=== PATIENT | female | born 1975 | race Caucasian/White ===

== ENCOUNTER 2018-05-11 18:19 | Emergency (ER) | payer OTHER, MEDICAID, SELFPAY ==
[2018-05-11 18:44] VITALS: BP 140/95; PULSE 84; RESP 18; TEMP 36.8; O2SAT 96
[2018-05-11 18:57] VITALS: BP 151/100; PULSE 72; RESP 17; O2SAT 100
--- NOTE | 2018-05-11 18:59 | ED.EYEPROB ---
HPI - Eye Problem <MEETA Kwon - Last Filed: 05/11/18 22:22> General Chief complaint: Eye Problems Stated complaint: SOMETHING IN RT EYE Time Seen by Provider: 05/11/18 18:53 Source: patient Mode of arrival: ambulatory Limitations: no limitations History of Present Illness HPI Narrative: 43-year-old female that is a nonsmoker here for complaint of pain and discomfort to her right eye since earlier this afternoon. She states that she was drilling a hole and the ceiling above per when a particle fell into her right eye. She states she tried to rub it out and washed for she feels that there is still been in her eye. She denies any vision changes. She does not know her last tetanus. Related Data Previous Rx's Medication Instructions Recorded oseltamivir [Tamiflu] 75 mg PO QDAY #10 cap 08/01/16 diazepam [Valium] 5 mg PO Q12HP PRN #10 tab 07/02/17 meloxicam [Mobic] 7.5 mg PO BIDCC PRN #20 tab 07/02/17 prednisone 40 mg PO Q DAY 5 Days #0 tab 07/02/17 Allergies Allergy/AdvReac Type Severity Reaction Status Date / Time Erythromycin Allergy Unknown Uncoded 11/28/17 12:58 IBUPROFEN Allergy Unknown HIVES Uncoded 11/28/17 12:58 Review of Systems <MEETA Kwon - Last Filed: 05/11/18 22:22> Constitutional Denies chills, Denies fever(s), Denies lethargy and Denies weakness Eyes Denies change in vision, Denies eye discharge, Denies irritation, Denies loss of vision and Reports eye pain ENT Ears, Nose, Mouth, and Throat: Denies change in voice, Denies neck pain and Denies sore throat Cardiovascular Denies chest pain, Denies irregular heart rhythm, Denies lightheadedness, Denies palpitations, Denies dyspnea, Denies dyspnea on exertion and Denies orthopnea Respiratory Denies cough, Denies dyspnea, Denies dyspnea on exertion and Denies wheezing Gastrointestinal Gastrointestinal: Denies abdominal pain, Denies change in bowel habits, Denies diarrhea, Denies nausea and Denies vomiting Genitourinary Denies hematuria, Denies flank pain, Denies urinary incontinence and Denies urinary urgency Musculoskeletal Denies neck pain Integumentary/Breasts Denies pruritus, Denies erythema, Denies rash and Denies wounds Neurologic Denies confusion, Denies loss of vision and Denies weakness Psychiatric Denies anxiety, Denies confusion, Denies depression, Denies homicidal ideation and Denies suicidal ideation Endocrine Denies palpitations Hematologic/Lymphatic Denies easy bruising Allergic/Immunologic Denies wheezing Exam <MEETA Kwon - Last Filed: 05/11/18 22:22> Initial Vital Signs Initial Vital Signs: Vital Signs Temperature 98.2 F 05/11/18 18:44 Pulse Rate 84 05/11/18 18:44 Respiratory Rate 18 05/11/18 18:44 Blood Pressure 140/95 H 05/11/18 18:44 Pulse Oximetry 96 05/11/18 18:44 Const General: cooperative and well developed Nutritional Appearance: well nourished Orientation: alert, awake, oriented x3 and not confused HENMT Nose: external nose normal and septum normal Eyes Conjunctivae: conjunctivae normal Pupils: PERRL EOM: EOM intact bilaterally Other: no foreign body identified into the right eye. On fluorescein exam corneal abrasion is seen into the 2 and 3:00 position of the right cornea. Resp Effort & Inspection: normal respiratory effort, able to speak in complete sentences, no respiratory distress and no use of accessory muscles Auscultation: clear to auscultation bilaterally, no rales, no rhonchi and no wheezes Cardio Rate: regular rate Rhythm: regular rhythm Heart Sounds: no click, no gallops, no murmurs and no rubs Pulses: normal peripheral pulses Back/Spine/Pelvis Back: No CVA tenderness Cervical Spine: cervical ROM normal and No pain with cervical ROM Thoracic/Lumbar Spine: thoracic and lumbar spine normal to inspection Skin General: no rashes or lesions noted, No jaundice and No petechiae Neuro General: alert, oriented x3, gait normal and no focal motor deficits Speech: speech normal <Kellie Morin DO - Last Filed: 05/12/18 01:42> Initial Vital Signs Initial Vital Signs: Vital Signs Temperature 98.2 F 05/11/18 18:44 Pulse Rate 84 05/11/18 18:44 Respiratory Rate 18 05/11/18 18:44 Blood Pressure 140/95 H 05/11/18 18:44 Pulse Oximetry 96 05/11/18 18:44 Course <MEETA Kwon - Last Filed: 05/11/18 22:22> Orders Ordered: Discontinued Medications Diphtheria/Tetanus/Acell Pertussis (Adacel) 0.5 ml IM .ONCE ONE Stop: 05/11/18 19:42 Last Admin: 05/11/18 19:54 Dose: 0.5 ml Erythromycin (Erythromycin Ophth Oint) 1 applic EYE-RIGHT NOW ONE Stop: 05/11/18 19:42 Last Admin: 05/11/18 19:48 Dose: Not Given Polymyxin/Trimethoprim Sulfate (Polytrim Prepack) 1 bottle MISC SEEINSTR ONE Stop: 05/11/18 19:48 Last Admin: 05/11/18 19:53 Dose: 1 drop Vital Signs - 8 hr 05/11/18 18:44 05/11/18 18:57 05/11/18 20:06 Temperature 98.2 F 98.7 F Pulse Rate 84 72 73 Respiratory Rate 18 17 18 Blood Pressure 140/95 H 150/70 H Blood Pressure [Left Arm] 151/100 H Pulse Oximetry 96 100 99 <Kellie Morin DO - Last Filed: 05/12/18 01:42> Orders Ordered: Discontinued Medications Diphtheria/Tetanus/Acell Pertussis (Adacel) 0.5 ml IM .ONCE ONE Stop: 05/11/18 19:42 Last Admin: 05/11/18 19:54 Dose: 0.5 ml Erythromycin (Erythromycin Ophth Oint) 1 applic EYE-RIGHT NOW ONE Stop: 05/11/18 19:42 Last Admin: 05/11/18 19:48 Dose: Not Given Polymyxin/Trimethoprim Sulfate (Polytrim Prepack) 1 bottle MISC SEEINSTR ONE Stop: 05/11/18 19:48 Last Admin: 05/11/18 19:53 Dose: 1 drop Vital Signs - 8 hr 05/11/18 18:44 05/11/18 18:57 05/11/18 20:06 Temperature 98.2 F 98.7 F Pulse Rate 84 72 73 Respiratory Rate 18 17 18 Blood Pressure 140/95 H 150/70 H Blood Pressure [Left Arm] 151/100 H Pulse Oximetry 96 100 99 MDM - Eye Problem <MEETA Kwon - Last Filed: 05/11/18 22:22> MDM Narrative Medical decision making narrative: Signs symptoms presents as corneal abrasion to the right eye. She is covered with Polytrim due to erythromycin allergy.. [id number] Tylenol or Motrin as needed for any discomfort. Visual acuity was unremarkable. Tetanus was updated in the emergency room today. Follow up with primary care provider next few days for re-evaluation. For any worsening symptoms return to the emergency room. Discharge Plan Departure Patient Disposition: Home Clinical Impression: Abrasion of cornea, right Discharge Date/Time: 05/11/18 20:07 Interventions: ED Discharge Assessment Last Done: 05/11/18 20:06 Instructions: DI for Corneal Abrasion Activity Restrictions/Additional Instructions: signs and symptoms presents as a corneal abrasion to the right eye. You have been placed on antibiotic drops use as directed. Use [id number] Tylenol or Motrin as needed for any discomfort. Follow up with primary care provider next week for re-evaluation. Tetanus was updated the emergency room today. For any worsening symptoms return to the emergency room. Prescriptions: No Action oseltamivir [Tamiflu] 75 MG capsule 75 mg PO QDAY Qty: 10 RF: 0 prednisone 20 MG tablet 40 mg PO Q DAY 5 Days Qty: 0 RF: 0 diazepam [Valium] 5 MG tablet 5 mg PO Q12HP PRNQty: 10 RF: 0 meloxicam [Mobic] 7.5 MG tablet 7.5 mg PO BIDCC PRNQty: 20 RF: 0 Referrals: Renée Stark PA-C [Primary Care Provider] - <Kellie Morin DO - Last Filed: 05/12/18 01:42> Cosign ED Attending Thea Attestation: I was immediately available in the department for consultation. Documentation has been reviewed. I agree with assessment and plan.
[2018-05-11] MEDS: POLYMY B/TRIMETH OPHTH PREPACK 1 BOTTLE MISC (19:53)
[2018-05-11] MEDS: TET,DIPH,PERTUSS(ACELL),VAC/PF 0.5 ML SYRINGE IM (19:54)
[2018-05-11 20:06] VITALS: BP 150/70; PULSE 73; RESP 18; TEMP 37.1; O2SAT 99
== END 2018-05-11 20:07 | disposition home or self-care (01) ==
PROVIDERS: Emergency Provider Nurse Practitioner Family; PCP Physician Assistant
DX: S05.01XA Injury of conjunctiva and corneal abrasion without foreign body, right eye, initial encounter (principal)
CPT/HCPCS: 90471; 99283; 90715

== ENCOUNTER → 2018-09-19 11:00 | Outpatient (CLI) | payer OTHER, MEDICAID, SELFPAY ==
--- NOTE | 2018-09-19 | DI.RAD.S_ITS ---
PROCEDURE: XR SHOULDER RT MIN 2V INDICATIONS: RIGHT SHOULDER PAIN TECHNIQUE: 3 views of the shoulder were acquired. COMPARISON: None. FINDINGS: Bones: No fractures or dislocations. No suspicious bony lesions. There is moderate cromioclavicular and mild glenohumeral joint degeneration with a twin space narrowing and osteophyte formation. Visualized ribs appear intact. Soft tissues: No suspicious soft tissue calcifications. IMPRESSION: No fracture or dislocation. [id number] degenerative joint disease. If clinical symptoms persist or clinical suspicion for internal derangement is high, MRI is suggested for further evaluation. Dictated by: Pankaj Haas M.D. on 09/19/2018 at 17:21 Approved by: Pankaj Haas M.D. on 09/19/2018 at 17:22
== END ==
PROVIDERS: PCP Physician Assistant; Visit Provider Internal Medicine
DX: M25.511 Pain in right shoulder (principal); M19.011 Primary osteoarthritis, right shoulder
CPT/HCPCS: 73030

== ENCOUNTER → 2019-10-13 19:33 | Outpatient (ROUT) | payer OTHER, MEDICAID, SELFPAY ==
[2019-10-13 19:49] LABS: Add Manual Diff / Slide Review NO; Basophils Absolute Auto 100 /uL (0-100); Basophils Percent Auto 0.6 % (0-2); Eosinophils Absolute Auto 100 /uL (0-450); Eosinophils Percent Auto 1.2 % (2-4); Hemoglobin 13.5 g/dL (12.0-16.0); Lymphocytes Absolute Auto 2300 /uL (1100-4500); Lymphocytes Percent Auto 25.4 % (25-40); Mean Corpuscular HGB Conc 33.6 % (30-36); Mean Corpuscular Hemoglobin 31.3 PG (26-34); Monocytes Absolute Auto 600 /uL (0-900); Monocytes Percent Auto 6.7 % (3-14); Neutrophils Absolute Auto 5900 /uL (1500-7000); Neutrophils Percent Auto 66.1 % (50-75); Platelet Count 267 X10^3/uL (150-400); Red Cell Distribution Width 13.4 % (11.6-14.8); White Blood Cell Count 8.9 X10^3/uL (4.5-11.0)
[2019-10-13 19:56] LABS: Alanine Aminotransferase 21 IU/L (<35); Albumin 4.2 g/dL (3.5-5.0); Albumin Globulin Ratio 1.4 (1.0-2.8); Alkaline Phosphatase 74 U/L (38-126); Aspartate Aminotransferase 24 IU/L (14-36); Bilirubin Total 0.5 mg/dL (0.2-1.3); Blood Urea Nitrogen 14 mg/dL (7-17); Calcium 9.7 mg/dL (8.4-10.2); Carbon Dioxide 27 mmol/L (22-32); Chloride 103 mmol/L (98-107); Cholesterol 183 mg/dL (140-199); Estimated Glomerular Filt Rate > 60.0 mL/min (>60); Globulin 2.9 g/dL (1.7-4.1); Glucose 88 mg/dL (70-100); HDL Cholesterol 46 mg/dL (40-60); HEMOLYSIS < 15 (0-50); LDL Cholesterol Calculated 105 mg/dL (<100); Potassium 3.8 mmol/L (3.4-5.1); Sodium 141 mmol/L (137-145); Total Protein 7.1 g/dL (6.3-8.2); Triglycerides 162 mg/dL (35-150)
[2019-10-13 20:05] LABS: Hemoglobin A1C% w Est Avg Glu 5.6 % (4.0-6.0)
[2019-10-13 20:13] LABS: Vitamin D 25 Hydroxy (D3) 33.5 ng/mL (30.0-100.0)
[2019-10-13 20:26] LABS: TSH w/ Reflex to FT4 2.84 uIU/mL (0.47-4.68)
== END ==
PROVIDERS: PCP Physician Assistant; Visit Provider Physician Assistant
DX: Z13.1 Encounter for screening for diabetes mellitus (principal); Z13.29 Encounter for screening for other suspected endocrine disorder; R63.5 Abnormal weight gain; G47.00 Insomnia, unspecified; E55.9 Vitamin D deficiency, unspecified
CPT/HCPCS: 80053; 80061; 82306; 83036; 84443; 85025

== ENCOUNTER 2022-05-09 11:37 | Emergency (ER) | payer OTHER, MEDICAID, SELFPAY ==
[2022-05-09 11:46] VITALS: BP 142/86; PULSE 77; RESP 15; TEMP 36.4; O2SAT 100; BMI 32.4
--- NOTE | 2022-05-09 11:51 | DI.RAD.S_ITS ---
PROCEDURE: XR KNEE LT 3V INDICATIONS: knee pain TECHNIQUE: 3 views of the knee were acquired. COMPARISON: [facility], , KNEE 3V RIGHT, 03/24/2013, 9:30. FINDINGS: Bones: No fractures or dislocations. No suspicious bony lesions. There is mild medial femorotibial joint space narrowing seen, with associated remodeling changes including subchondral sclerosis and osteophyte formation along the jointline. On the sunrise view, there is mild lateral patellofemoral joint space narrowing seen. Osteophyte formation can be seen along the margins of the patella. Soft tissues: There is a moderate left knee joint effusion. No suspicious soft tissue calcifications. IMPRESSION: Moderate left knee joint effusion. No acute bony abnormality is seen. Osteoarthritic degenerative changes are seen, which are most prominent involving the medial femorotibial compartment of the knee. If it would be helpful for clinical management decision making, please consider a dedicated, scheduled knee MRI for further evaluation (assuming that there is no contraindication). Dictated by: Dani Lorenzo M.D. on 05/09/2022 at 11:05 Approved by: Dani Lorenzo M.D. on 05/09/2022 at 11:06
[2022-05-09] MEDS: KETOROLAC 10 MG TABLET PO (14:23)
--- NOTE | 2022-05-09 14:58 | ED.LOWEXIN ---
HPI - Extremity Injury (Lower) <MEETA Martínez - Last Filed: 05/09/22 17:02> General Chief Complaint: Extremity Injury, Lower Stated Complaint: lt. knee pain Time Seen by Provider: 05/09/22 13:37 Source: patient Mode of arrival: Ambulatory History of Present Illness HPI Narrative: This is a 47-year-old female who presents to the emergency department complaining of left knee pain which has been worsening over the last 2 weeks. She states she went to the walk-in clinic and came here for referral to Orthopedics. She states that she does not have a primary care provider and she went to the walk-in clinic for a referral to physical therapy but the referral location did not take her insurance. Patient states that she has a history of meniscal injury but does not remember which knee. She states that her left knee has been hurting for about 2 weeks, it feels swollen and she states it feels unstable Related Data Previous Rx's Medication Instructions Recorded oseltamivir 75 mg capsule (Tamiflu) 75 mg PO QDAY #10 caps 08/01/16 diazepam 5 mg tablet (Valium) 5 mg PO Q12HP PRN #10 tabs 07/02/17 meloxicam 7.5 mg tablet (Mobic) 7.5 mg PO BIDCC PRN #20 tabs 07/02/17 prednisone 20 mg tablet 40 mg PO Q DAY 5 days #0 tabs 07/02/17 Allergies Allergy/AdvReac Type Severity Reaction Status Date / Time erythromycin base Allergy Unknown Verified 05/09/22 14:02 ibuprofen Allergy Unknown Hives Verified 05/09/22 14:02 Review of Systems <MEETA Martínez - Last Filed: 05/09/22 17:02> Review of Systems Narrative: Review of systems is negative for acute abnormalities unless otherwise noted in HPI Patient History <MEETA Martínez - Last Filed: 05/09/22 17:02> Social History Smoking Status: Never smoker Smoking Status: Never smoker alcohol intake frequency: a few times a week Substance Use Type: marijuana Exam <MEETA Martínez - Last Filed: 05/09/22 17:02> Narrative Exam Narrative: Reviewed vitals signs and nursing notes. General: cooperative, comfortable, in no acute distress, well groomed HEENT: symmetrical facial expressions, moist mucous membranes Cardiovascular: regular rate and rhythm, no peripheral edema, warm extremities Respiratory: normal effort, able to speak in complete sentences, without wheezing, stridor, or abnormal breath sounds. No retractions or tachypnea. GI: abdomen soft, nontender to palpation, nondistended, without masses, rebound tenderness or exquisite tenderness with exam. MSK: moves all extremities, neurovascularly intact, no weakness, normal tone, left knee with tenderness over patellar tendon but it feels intact, no significant tenderness over MCL or LCL, Jacqueline's is negative, no laxity with varus and valgus testing although patient did complain of pain on the medial aspect of her knee with this testing, palpable patellar effusion Skin: brisk capillary refill, without pallor or erythema Neuro: normal speech and cognition, A&O x3, ambulatory, clear speech Psych: mental status is grossly normal, congruent mood, normal affect, pleasant and cooperative Initial Vital Signs Initial Vital Signs: Vital Signs Temperature 97.5 F L 05/09/22 11:46 Pulse Rate 77 05/09/22 11:46 Respiratory Rate 15 05/09/22 11:46 Blood Pressure 142/86 H 05/09/22 11:46 Pulse Oximetry 100 05/09/22 11:46 Oxygen Delivery Method 05/09/22 11:46 <Kellie Morin DO - Last Filed: 05/10/22 20:39> Initial Vital Signs Initial Vital Signs: Vital Signs Temperature 97.5 F L 05/09/22 11:46 Pulse Rate 77 05/09/22 11:46 Respiratory Rate 15 05/09/22 11:46 Blood Pressure 142/86 H 05/09/22 11:46 Pulse Oximetry 100 05/09/22 11:46 Oxygen Delivery Method 05/09/22 11:46 Procedures <MEETA Martínez - Last Filed: 05/09/22 17:02> Orthopedic Splinting/Casting Injury #1: Side: left Lower Extremity Injury Location: knee Lower Extremity Immobilizer: knee immobilizer Post splinting neuro exam: intact Post splinting vascular exam: intact Course <MEETA Martínez Last Filed: 05/09/22 17:02> Orders Ordered: Discontinued Medications Ketorolac Tromethamine (Ketorolac 10 Mg Tablet) 10 mg PO NOW ONE Stop: 05/09/22 14:02 Last Admin: 05/09/22 14:23 Dose: 10 mg Documented By: CARLOTTA Vital Signs Vital signs: Vital Signs - 8 hr 05/09/22 11:46 Temperature 97.5 F L Pulse Rate 77 Respiratory Rate 15 Blood Pressure 142/86 H Pulse Oximetry 100 Oxygen Delivery Method Room Air <Kellie Morin DO - Last Filed: 05/10/22 20:39> Orders Ordered: Discontinued Medications Ketorolac Tromethamine (Ketorolac 10 Mg Tablet) 10 mg PO NOW ONE Stop: 05/09/22 14:02 Last Admin: 05/09/22 14:23 Dose: 10 mg Documented By: CARLOTTA Vital Signs Vital signs: Vital Signs - 8 hr 05/09/22 11:46 Temperature 97.5 F L Pulse Rate 77 Respiratory Rate 15 Blood Pressure 142/86 H Pulse Oximetry 100 Oxygen Delivery Method Room Air MDM - Extremity Injury (Lower) <MEETA Martínez - Last Filed: 05/09/22 17:02> Imaging Data Extremity x-ray #1: Radiologist's Impression: PROCEDURE:? XR KNEE LT 3V ? INDICATIONS:? knee pain ? TECHNIQUE:? 3 views of the knee were acquired.? ? COMPARISON:? [facility], , KNEE 3V RIGHT, 03/24/2013, 9:30. ? FINDINGS:? ? Bones:? No fractures or dislocations.? No suspicious bony lesions.? There is mild medial femorotibial joint space narrowing seen, with associated remodeling changes including subchondral sclerosis and osteophyte formation along the jointline.? ? On the sunrise view, there is mild lateral patellofemoral joint space narrowing seen. Osteophyte formation can be seen along the margins of the patella. ? Soft tissues:? There is a moderate left knee joint effusion.? No suspicious soft tissue calcifications.? ? ? IMPRESSION:? Moderate left knee joint effusion. ? No acute bony abnormality is seen. ? Osteoarthritic degenerative changes are seen, which are most prominent involving the medial femorotibial compartment of the knee.? ? ? If it would be helpful for clinical management decision making, please consider a dedicated, scheduled knee MRI for further evaluation (assuming that there is no contraindication).? ? Dictated by: Dani Lorenzo M.D. on 05/09/2022 at 11:05 ? ? Approved by: Dani Lorenzo M.D. on 05/09/2022 at 11:06 ? [facility] Narrative Medical decision making narrative: This is a 47-year-old female presents to the emergency department with 2 weeks of left knee pain with prior history of torn meniscus. She does not have any particular injury which this pain came from, it has been getting more sore over the last 2 weeks. She has a palpable supra patellar effusion. X-rays negative for acute osseous abnormality. Jacqueline's test was negative, no increased laxity with varus and valgus testing, she had tenderness over patellar tendon but no tenderness over her MCL or LCL. She was fitted in a knee immobilizer and encouraged to follow-up with [facility]. She is not having any muscle spasms, this does not sound like referred pain from her lower back. X-ray shows [id number] left knee effusion. Encourage patient to follow-up with orthopedics and wear the knee immobilizer while she is ambulatory until then. Encouraged anti-inflammatories and Tylenol as needed for pain, patient states that she is taking Tylenol and naproxen at this time. Patient is appropriate and amenable to discharge home. Vital signs are stable on repeat examination is unremarkable. Patient has been informed of results. Patient has been given strict return to ER precautions for any new or worsening symptoms. Patient understands to follow up closely with outpatient providers as instructed. Patient understands plan and agrees to discharge home. All questions and concerns answered at this time. Discharge Plan Departure Patient Disposition: Home Clinical Impression: Effusion of knee joint, left Instructions: DI for Meniscal Tear, DI for Knee Pain Activity Restrictions/Additional Instructions: *You have been diagnosed with a knee effusion. Please follow-up with [facility], placed consultation. Continued ice, wear the knee immobilizer while you are doing work or wrap her knee with an Dusty bandage to provide a little additional support and prevent re-injuring it. Take your anti-inflammatories and Tylenol for pain, ice it frequently for 20 minutes at a time. Try to avoid overuse, follow-up at [facility]. You can call the number below to establish care with one of the primary care providers. *What to do: *Please continue to take your regular medications as directed. [ ] New medication prescriptions sent to your pharmacy: [ ] [ ] New medication written as a paper prescription [x ] No new medications given *Please follow up with your primary care provider in 2-3 days, call for an appointment. Let them know you were seen in the Emergency Department and that we asked that you be seen for follow-up. We will electronically transmit a record of today's note if your PCP is in our system *If you do not have a primary care provider please contact [phone] to establish care with one of the [facility] primary care providers. *Return to Emergency Department if you should have any new, worsening, or concerning symptoms, such as [fever greater than 101F, chills, worsening pain, persistent vomiting or other bothersome symptoms]. Prescriptions: No Action oseltamivir [Tamiflu] 75 MG capsule 75 mg PO QDAY Qty: 10 0RF prednisone 20 MG tablet 40 mg PO Q DAY 5 Days Qty: 0 0RF diazepam [Valium] 5 MG tablet 5 mg PO Q12HP PRNQty: 10 0RF meloxicam [Mobic] 7.5 MG tablet 7.5 mg PO BIDCC PRNQty: 20 0RF Referrals: [facility] [Provider Group] Renée Stark PA-C [Primary Care Provider] - Visit Report Forms: Patient Portal/API <Kellie Morin DO - Last Filed: 05/10/22 20:39> Cosign ED Attending Thea Attestation: I was immediately available in the department for consultation. Documentation has been reviewed. I agree with assessment and plan.
== END 2022-05-09 15:03 | disposition home or self-care (01) ==
PROVIDERS: Emergency Provider Nurse Practitioner Critical Care Medicine; PCP Physician Assistant
DX: M25.462 Effusion, left knee (principal)
CPT/HCPCS: 73562; 99283

== ENCOUNTER → 2022-05-18 18:40 | Outpatient (CLI) | payer OTHER, MEDICAID, SELFPAY ==
--- NOTE | 2022-05-18 18:42 | DI.MRI.S_ITS ---
PROCEDURE: MR KNEE LT WO CON INDICATIONS: Unspecified internal derangement of left knee TECHNIQUE: Noncontrast sagittal PD fast spin echo and T2 fast spin echo with fat saturation, sagittal 3-D FLASH with fat saturation; coronal T1 spin echo and PD fast spin echo with fat saturation, and axial PD fast spin echo with fat saturation through the knee. COMPARISON: [facility], CR, XR KNEE LT 3V, 05/09/2022, 11:52. [facility], MR, KNEE WITHOUT CONTRAST, 04/02/2013, 9:32. FINDINGS: Image quality: Excellent. Menisci: Peripheral displacement of medial meniscus bowing medial collateral ligament is seen. Signal abnormality involving posterior horn of medial meniscus with subtle extension to inferior articulating surface concerning for subtle oblique tear best seen on series 8, image 11. Lateral meniscus is normal in size and signal. Moderate to high-grade partial-thickness tear involving medial meniscal root ligament is noted. Lateral meniscal root ligament is intact. Cruciate ligaments: Suggestion of degenerative changes versus low-grade partial-thickness tear involving proximal ACL near its femoral insertion. No ACL rupture. PCL is intact. Medial structures: Low-grade MCL sprain/partial-thickness tear is seen. The posterior oblique ligament, semimembranosus tendon insertions, oblique popliteal ligament, and meniscocapsular junction appear intact. Visualized portions of the pes anserinus tendons appear normal. No abnormal bursal fluid. Lateral structures: The lateral collateral ligament, long and short heads of the biceps femoris tendon appear intact. The popliteus tendon appears normal; the popliteofibular ligament appears intact. Iliotibial band appears normal. Anterior structures: The quadriceps and patellar tendons appear intact. Patellar alignment is normal. No femoral trochlear dysplasia or ventral trochlear prominence. No edema in the infrapatellar fat pad. Bones and cartilage: Mild tricompartmental osteoarthritis and low-grade chondromalacia is seen more prominent in medial femoral tibial compartment. No fracture or dislocation. Nonspecific intraosseous cystic area involving posterior medial medullary space of proximal tibia near PCL insertion and may represent intraosseous cyst. Joint space: There is moderate amount of joint fluid, no gross loose bodies. No Teran's cyst. Normal appearing synovial plicae are incidentally noted. IMPRESSION: 1. Suggestion of very subtle oblique tear involving posterior horn of medial meniscus extending to inferior articulating surface. Suggestion of moderate to high-grade partial-thickness tear involving medial meniscal root ligament. Lateral meniscus is intact. 2. Degenerative changes versus low-grade partial-thickness tear involving proximal ACL. No full-thickness ACL rupture. PCL is intact. 3. Low-grade MCL sprain/partial-thickness tear. 4. Mild tricompartmental osteoarthritis and low-grade chondromalacia more prominent in medial femoral tibial compartment. Nonspecific intraosseous cyst formation in proximal tibial intramedullary space near PCL insertion. No fracture or dislocation. 5. Moderate joint effusion, no gross loose bodies. No bakers cyst. Dictated by: Anthony Eaton M.D. on 05/19/2022 at 9:28 Approved by: Anthony Eaton M.D. on 05/19/2022 at 9:33
== END ==
PROVIDERS: PCP Physician Assistant; Referring Provider Physician Assistant Medical; Visit Provider Physician Assistant Medical
DX: S83.412A Sprain of medial collateral ligament of left knee, initial encounter (principal); M23.92 Unspecified internal derangement of left knee; M17.12 Unilateral primary osteoarthritis, left knee; M94.262 Chondromalacia, left knee; M25.462 Effusion, left knee
CPT/HCPCS: 73721

== ENCOUNTER → 2022-06-29 06:59 | Outpatient (CLI) | payer OTHER, MEDICAID, SELFPAY ==
--- NOTE | 2022-06-29 | DI.MG.S_ITS ---
BILATERAL DIGITAL SCREENING MAMMOGRAM 3D/2D WITH CAD: 06/29/2022 CLINICAL: Routine screening. Baseline exam. No prior exams were available for comparison. Both breasts are heterogeneously dense, which may obscure small masses (category c / 51-75% glandular tissue). Current study was also evaluated with a Computer Aided Detection (CAD) system. No significant masses, calcifications, or other findings are seen in either breast. IMPRESSION: NEGATIVE There is no mammographic evidence of malignancy. A 1 year screening mammogram is recommended. Based on the Tyrer Cuzick model (a risk assessment model) the patient's lifetime risk is 14.7% and her 10 year risk is 3.2%. According to the ACR, ACS, and NCCN guidelines, an annual breast MRI exam along with mammogram is recommended if the patient's lifetime risk is 20% or greater. This exam was interpreted at Station ID: [id number]. NOTE: For mammograms, a report in lay terms will be sent to the patient. Approximately 15% of breast malignancies will not be visualized mammographically. In the management of a palpable breast mass, a negative mammogram must not discourage biopsy of a clinically suspicious lesion. Electronically Signed By: Yandy johnson/talat:06/29/2022 13:20:24 letter sent: Normal Exam ACR BI-RADS Category 1: Negative [id number]
[2022-06-29 09:17] LABS: Add Manual Diff / Slide Review NO; Basophils Absolute Auto 0 /uL (0-100); Basophils Percent Auto 0.5 % (0-2); Eosinophils Absolute Auto 100 /uL (0-450); Eosinophils Percent Auto 1.6 % (2-4); Hematocrit 36.9 % (36-46); Hemoglobin 12.6 g/dL (12.0-16.0); Lymphocytes Absolute Auto 1400 /uL (1100-4500); Lymphocytes Percent Auto 20.9 % (25-40); Mean Corpuscular HGB Conc 34.1 % (30-36); Mean Corpuscular Hemoglobin 32.1 PG (26-34); Mean Corpuscular Volume 94.3 fL (80-100); Monocytes Absolute Auto 400 /uL (0-900); Monocytes Percent Auto 5.9 % (3-14); Neutrophils Absolute Auto 4800 /uL (1500-7000); Neutrophils Percent Auto 71.1 % (50-75); Platelet Count 236 X10^3/uL (150-400); Red Blood Cell Count 3.91 X10^6/uL (4.0-5.2); Red Cell Distribution Width 13.9 % (11.6-14.8); White Blood Cell Count 6.8 X10^3/uL (4.5-11.0)
[2022-06-29 11:19] LABS: Vitamin D 25 Hydroxy (D3) 46.2 ng/mL (30.0-100.0)
[2022-06-29 11:27] LABS: TSH w/ Reflex to FT4 2.07 uIU/mL (0.47-4.68)
[2022-06-29 15:24] LABS: Alanine Aminotransferase 22 IU/L (<35); Albumin 3.8 g/dL (3.5-5.0); Albumin Globulin Ratio 1.4 (1.0-2.8); Alkaline Phosphatase 73 U/L (38-126); Aspartate Aminotransferase 18 IU/L (14-36); BUN Creatinine Ratio 20.5 (6-22); Bilirubin Total 0.3 mg/dL (0.2-1.3); Blood Urea Nitrogen 15 mg/dL (7-17); Carbon Dioxide 26 mmol/L (22-32); Chloride 104 mmol/L (98-107); Cholesterol 177 mg/dL (140-199); Estimated Glomerular Filt Rate > 60 mL/min (>60); Globulin 2.7 g/dL (1.7-4.1); Glucose 104 mg/dL (70-100); HDL Cholesterol 61 mg/dL (40-60); HEMOLYSIS < 15 (0-50); LDL Cholesterol Calculated 94 mg/dL (<100); Potassium 4.4 mmol/L (3.4-5.1); Sodium 138 mmol/L (137-145); Total Protein 6.5 g/dL (6.3-8.2); Triglycerides 108 mg/dL (35-150)
[2022-06-29 16:30] LABS: Vitamin B12 438 pg/mL (239-931)
== END ==
PROVIDERS: Family Provider Family Medicine; PCP Family Medicine; Referring Provider Family Medicine; Visit Provider Family Medicine
DX: Z12.31 Encounter for screening mammogram for malignant neoplasm of breast (principal); Z13.29 Encounter for screening for other suspected endocrine disorder; E56.9 Vitamin deficiency, unspecified; K21.9 Gastro-esophageal reflux disease without esophagitis; N92.6 Irregular menstruation, unspecified; Z13.0 Encounter for screening for diseases of the blood and blood-forming organs and certain disorders involving the immune mechanism; Z13.220 Encounter for screening for lipoid disorders; Z82.49 Family history of ischemic heart disease and other diseases of the circulatory system
CPT/HCPCS: 36415; 77063; 77067; 80053; 80061; 82306; 82607; 82746; 84443; 85025

== ENCOUNTER → 2022-08-04 09:10 | Outpatient (CLI) | payer OTHER, MEDICAID, SELFPAY ==
[2022-08-04 10:33] LABS: COVID19 -Nasal RAPID Negative (Negative)
== END ==
PROVIDERS: Family Provider Family Medicine; PCP Family Medicine; Visit Provider Surgery
DX: Z20.822 Contact with and (suspected) exposure to COVID-19 (principal); Z01.812 Encounter for preprocedural laboratory examination
CPT/HCPCS: 87635; C9803

== ENCOUNTER 2022-08-07 09:38 | Day surgery (SDC) | payer OTHER, MEDICAID, SELFPAY ==
--- NOTE | 2022-08-07 09:50 | PM.HP.1 ---
History of Present Illness History of Present Illness Date Patient Seen: 08/07/22 Time Patient Seen: 10:03 Chief complaint: Colonoscopy Narrative: no family history for colon cancer. No symptoms, this is her first scope. Patient History Family & Social History Tobacco & Substance use: Smoking Status Never smoker alcohol intake frequency a few times a week Substance Use Type marijuana Meds Home Medications and Allergies Home Medications Medication Instructions Recorded Confirmed Type oseltamivir 75 mg capsule (Tamiflu) 75 mg PO QDAY #10 caps 08/01/16 Rx diazepam 5 mg tablet (Valium) 5 mg PO Q12HP PRN #10 tabs 07/02/17 Rx meloxicam 7.5 mg tablet (Mobic) 7.5 mg PO BIDCC PRN #20 tabs 07/02/17 Rx prednisone 20 mg tablet 40 mg PO Q DAY 5 days #0 tabs 07/02/17 Rx peg 3350-electrolytes 236 240 ml PO Q10M #4,000 mL 08/01/22 Rx gram-22.74 gram-6.74 gram-5.86 gram solution (Golytely) Allergies Allergy/AdvReac Type Severity Reaction Status Date / Time erythromycin base Allergy Unknown Verified 08/07/22 09:28 ibuprofen Allergy Unknown Hives Verified 08/07/22 09:28 Review of Systems Review of Systems ROS: Yes All systems reviewed with the patient and are negative except as otherwise documented Exam Const General: cooperative and healthy appearing Nutritional Appearance: average body habitus Orientation: alert, awake and oriented x3 HENMT Head: normal to inspection Eyes General: appearance normal, both eyes and all related structures Sclera: sclerae normal Neck Neck: trachea midline Chest Chest: normal inspection of the chest Resp Effort & Inspection: normal respiratory effort and able to speak in complete sentences Cardio Rate: regular rate Rhythm: regular rhythm GI Palpation: soft Skin General: turgor normal Neuro General: patient alert, patient awake and patient oriented x3 Extrem General: full ROM Psych Appearance: well kempt Mental Status: mental status grossly normal Judgment: judgment good Assessment & Plan Assessment & Plan narrative: colonoscopy with biopsy if indicated. Moderate sedation. COVID-19 COVID-19 status: Negative Time Spent With Patient Time with patient: less than 30 minutes Critical Care time: I spent a total of [] minutes of critical care time on this patient's care today; this time is exclusive of procedural time.
[2022-08-07] MEDS: LACTATED RINGERS 1,000 ML 84 ML IV (09:53)
[2022-08-07 10:00] VITALS: BP 133/88; PULSE 90; RESP 18; TEMP 36.7; O2SAT 100; BMI 32.3
[2022-08-07] MEDS: fentaNYL 100 MCG/2 ML INJ 150 MCG IV (10:20)
[2022-08-07] MEDS: MIDAZOLAM 5 MG/5 ML VIAL IV (10:20)
--- NOTE | 2022-08-07 10:30 | PM.OP.COLON ---
Operative Date/Time/Diagnoses Date of procedure: 08/07/22 Time of procedure: 10:30 Pre-op diagnosis: colon cancer screening Post-op diagnosis: same Procedure & Clinicians Study performed: colonoscopy with moderate sedation Same procedure as scheduled: Yes Indications: colon cancer screening Surgeon: Yulisa Mckoy Procedure Notes Procedure in detail: Preop diagnosis: Colon cancer screening Postop diagnosis: Same Operative procedure: Colonoscopy with moderate sedation Surgeon: Eleonora Mckoy MD Anesthetic: Fentanyl 150 mcg Versed 5 mg Findings: Normal colonoscopy. No polyps, no diverticulosis Procedure: Patient placed in lateral position. Rectal exam performed showing normal tone no masses. Colonoscope inserted into the rectum and advanced to ileocecal valve with minimal difficulty. Insufflation extraction of scope and the above findings. Impression: No polyps, no diverticulosis. Recommendations: Repeat screening colonoscopy in 10 years unless otherwise indicated by change in family history or clinical condition Sedation minutes: 11 Specimen(s): none sent Complications: none Impression: Normal colon Post-procedure Recommendations: Colonoscopy in 10 years Follow up: as needed Disposition: PACU
[2022-08-07 10:34] VITALS: BP 129/80; PULSE 69; RESP 18; TEMP 37.3; O2SAT 100
[2022-08-07 10:39] VITALS: BP 123/80; PULSE 72; RESP 14; O2SAT 98
[2022-08-07 10:44] VITALS: BP 122/77; PULSE 67; RESP 14; TEMP 36.8; O2SAT 98
[2022-08-07 10:48] VITALS: BP 126/72; PULSE 66; RESP 12; TEMP 36.9; O2SAT 97
[2022-08-07 11:02] VITALS: BP 122/74; PULSE 72; RESP 16; TEMP 36.3; O2SAT 98
== END 2022-08-07 11:05 | disposition home or self-care (01) ==
PROVIDERS: Family Provider Family Medicine; PCP Family Medicine; Referring Provider Surgery; Visit Provider Surgery
PROC: 0DJD8ZZ Inspection of Lower Intestinal Tract, Via Natural or Artificial Opening Endoscopic (ICD-10-PCS; CPT 45378; principal; 2022-08-07 10:45)
DX: Z12.11 Encounter for screening for malignant neoplasm of colon (principal)
CPT/HCPCS: 45378; J2250; J3010

== ENCOUNTER → 2023-08-10 08:32 | Outpatient (CLI) | payer OTHER, MEDICAID, SELFPAY ==
--- NOTE | 2023-08-10 | DI.MG.S_ITS ---
BILATERAL DIGITAL SCREENING MAMMOGRAM 3D/2D WITH CAD: 08/10/2023 CLINICAL: Routine screening. Comparison is made to exam dated: 06/29/2022 mammogram - [facility]. Both breasts are heterogeneously dense, which may obscure small masses (category c / 51-75% glandular tissue). Current study was also evaluated with a Computer Aided Detection (CAD) system. There are a stable benign cyst and calcification in the right breast. There also is a benign calcification in the left breast. No significant masses, calcifications, or other findings are seen in either breast. There has been no significant interval change. IMPRESSION: BENIGN There is no mammographic evidence of malignancy. A 1 year screening mammogram is recommended. Based on the Tyrer Cuzick model (a risk assessment model) the patient's lifetime risk is 14.6% and her 10 year risk is 3.3%. According to the ACR, ACS, and NCCN guidelines, an annual breast MRI exam along with mammogram is recommended if the patient's lifetime risk is 20% or greater. This exam was interpreted at Station ID: [id number]. NOTE: For mammograms, a report in lay terms will be sent to the patient. Approximately 15% of breast malignancies will not be visualized mammographically. In the management of a palpable breast mass, a negative mammogram must not discourage biopsy of a clinically suspicious lesion. Electronically Signed By: Kristian alvarez/talat:08/10/2023 13:03:03 letter sent: Normal Exam ACR BI-RADS Category 2: Benign Finding(s) 3342F
== END ==
PROVIDERS: PCP Nurse Practitioner Family; Referring Provider Nurse Practitioner Family; Visit Provider Nurse Practitioner Family
DX: Z12.31 Encounter for screening mammogram for malignant neoplasm of breast (principal)
CPT/HCPCS: 77063; 77067

== ENCOUNTER → 2024-05-19 07:15 | Outpatient (CLI) | payer OTHER, MEDICAID, SELFPAY ==
--- NOTE | 2024-05-19 07:17 | DI.RAD.S_ITS ---
PROCEDURE: XR SHOULDER LT MIN 2V INDICATIONS: Bilateral Should Pain TECHNIQUE: 3 views of the shoulder were acquired. COMPARISON: [facility], CR, XR SHOULDER RT MIN 2V, 09/19/2018, 11:13. FINDINGS: Bones: There are no osseous abnormalities. Acromioclavicular and glenohumeral joints: Normal in width and alignment without arthritic change Soft tissues: No soft tissue swelling, calcification or mass. IMPRESSION: Normal shoulder Dictated by: Moustapha Mike M.D. on 05/19/2024 at 9:07 Approved by: Moustapha Mike M.D. on 05/19/2024 at 9:07
--- NOTE | 2024-05-19 07:17 | DI.RAD.S_ITS ---
PROCEDURE: XR KNEE LT 3V INDICATIONS: Acute on chronic b/l knee pain TECHNIQUE: 3 views of the knee were acquired. COMPARISON: [facility], CR, XR KNEE LT 3V, 05/09/2022, 11:52. FINDINGS: Bones: There are no osseous abnormalities. Joints: Severe patellofemoral and medial tibial femoral degeneration appreciated. smalleffusions. effusions Soft tissues: Normal IMPRESSION: Severe patellofemoral medial tibial femoral degeneration. Small effusion. No change Dictated by: Moustapha Mike M.D. on 05/19/2024 at 9:04 Approved by: Moustapha Mike M.D. on 05/19/2024 at 9:05
--- NOTE | 2024-05-19 07:17 | DI.RAD.S_ITS ---
PROCEDURE: XR KNEE RT 3V INDICATIONS: Acute on chronic b/l knee pain TECHNIQUE: 3 views of the knee were acquired. COMPARISON: [facility], CR, XR KNEE LT 3V, 05/09/2022, 11:52. FINDINGS: Bones: There are no osseous abnormalities Joints: Severe patellofemoral medial tibial femoral degeneration appreciated. Small effusion noted.. Soft tissues: No soft tissue abnormality. IMPRESSION: Severe degeneration with small effusion Dictated by: Moustapha Mike M.D. on 05/19/2024 at 9:06 Approved by: Moustapha Mike M.D. on 05/19/2024 at 9:06
--- NOTE | 2024-05-19 07:17 | DI.RAD.S_ITS ---
PROCEDURE: XR SHOULDER RT MIN 2V INDICATIONS: Bilateral Should Pain TECHNIQUE: 3 views of the shoulder were acquired. COMPARISON: [facility], CR, XR SHOULDER RT MIN 2V, 09/19/2018, 11:13. FINDINGS: Bones: There are no osseous abnormalities. Acromioclavicular and glenohumeral joints: Mild acromioclavicular and glenohumeral degeneration appreciated. Soft tissues: Normal IMPRESSION: Degeneration. Dictated by: Moustapha Mike M.D. on 05/19/2024 at 9:08 Approved by: Moustapha Mike M.D. on 05/19/2024 at 9:09
[2024-05-19 08:05] LABS: Add Manual Diff / Slide Review NO; Basophils Absolute Auto 100 /uL (0-100); Basophils Percent Auto 0.8 % (0-2); Eosinophils Absolute Auto 200 /uL (0-450); Eosinophils Percent Auto 2.9 % (2-4); Hematocrit 39.9 % (36-46); Hemoglobin 13.4 g/dL (12.0-16.0); Lymphocytes Absolute Auto 2000 /uL (1100-4500); Lymphocytes Percent Auto 26.9 % (25-40); Mean Corpuscular HGB Conc 33.6 % (30-36); Mean Corpuscular Hemoglobin 31.4 PG (26-34); Mean Corpuscular Volume 93.3 fL (80-100); Monocytes Absolute Auto 500 /uL (0-900); Monocytes Percent Auto 6.5 % (3-14); Neutrophils Absolute Auto 4600 /uL (1500-7000); Neutrophils Percent Auto 62.9 % (50-75); Platelet Count 254 X10^3/uL (150-400); Red Blood Cell Count 4.27 X10^6/uL (4.0-5.2); Red Cell Distribution Width 14.8 % (11.6-14.8); White Blood Cell Count 7.3 X10^3/uL (4.5-11.0)
[2024-05-19 08:15] LABS: Hemoglobin A1C% w Est Avg Glu 5.3 % (4.0-6.0)
[2024-05-19 08:24] LABS: Alanine Aminotransferase 20 IU/L (<35); Albumin Globulin Ratio 1.5 (1.0-2.8); Alkaline Phosphatase 88 U/L (38-126); Aspartate Aminotransferase 22 IU/L (14-36); BUN Creatinine Ratio 18.8 (6-22); Bilirubin Total 0.5 mg/dL (0.2-1.3); Blood Urea Nitrogen 15 mg/dL (7-17); C-Reactive Protein Quant 1.3 mg/dL (<1.0); Calcium 9.7 mg/dL (8.4-10.2); Carbon Dioxide 28 mmol/L (22-32); Chloride 104 mmol/L (98-107); Cholesterol 212 mg/dL (140-199); Estimated Glomerular Filt Rate > 60 mL/min (>60); Globulin 2.7 g/dL (1.7-4.1); Glucose 120 mg/dL (70-100); HDL Cholesterol 59 mg/dL (40-60); HEMOLYSIS < 15 (0-50); LDL Cholesterol Calculated 131 mg/dL (<100); Potassium 4.5 mmol/L (3.4-5.1); Sodium 138 mmol/L (137-145); Total Protein 6.7 g/dL (6.3-8.2); Triglycerides 108 mg/dL (35-150)
[2024-05-19 08:37] LABS: Follicle Stimulating Hormone 44.9 mIU/mL
[2024-05-19 08:38] LABS: Prolactin 12.3 ng/mL (3.0-18.6)
[2024-05-19 08:49] LABS: Erythrocyte Sedimentation Rate 14 MM/HR (0-20)
[2024-05-19 15:16] LABS: Hep C Virus Ab w/Reflex Quant NEGATIVE s/c (NEGATIVE)
== END ==
PROVIDERS: PCP Family Medicine; Referring Provider Family Medicine; Visit Provider Family Medicine
DX: M17.0 Bilateral primary osteoarthritis of knee (principal); M19.011 Primary osteoarthritis, right shoulder; M25.511 Pain in right shoulder; M25.512 Pain in left shoulder; M25.561 Pain in right knee; M25.562 Pain in left knee; E66.9 Obesity, unspecified; Z78.0 Asymptomatic menopausal state; Z11.59 Encounter for screening for other viral diseases; Z13.1 Encounter for screening for diabetes mellitus; Z13.228 Encounter for screening for other metabolic disorders; Z13.220 Encounter for screening for lipoid disorders; Z13.9 Encounter for screening, unspecified
CPT/HCPCS: 36415; 73030; 73562; 80053; 80061; 83001; 83036; 84146; 85025; 85651; 86140; 86803

== ENCOUNTER → 2025-02-14 07:45 | Outpatient (CLI) | payer OTHER, SELFPAY ==
--- NOTE | 2025-02-14 07:48 | DI.MG.S_ITS ---
MM screening mammo BI: 02/14/2025. BI-RADS: 1 CLINICAL: 49-year old female for bilateral screening mammogram. Tyrer-Cuzick lifetime risk of 13.7%. No personal or first-degree family history of breast cancer. PRIOR EXAMS 08/10/2023, 06/29/2022. MAMMOGRAPHY TECHNIQUE: 2D and 3D (tomosynthesis) digital mammographic views obtained, with additional images as needed for full coverage. Current study was also evaluated with a Computer Aided Detection (CAD) system. DENSITY C. The breasts are heterogeneously dense, which may obscure small masses. MAMMOGRAPHY FINDINGS Bilateral: No suspicious mass, asymmetry, microcalcification, or other abnormality seen. No significant change from comparison. IMPRESSION: * No evidence of malignancy. RECOMMENDATIONS Bilateral * Annual screening mammography. OVERALL ASSESSMENT CATEGORY BI-RADS-1: Negative. The [employer] recommends annual screening mammography beginning at age 40 for women with average risk of breast cancer. ELECTRONICALLY SIGNED: Pablo Calderon M.D. on 02/16/2025 at 07:57:09 AM PT Interpreting Station ID: [id number]
[2025-02-14 09:15] LABS: Hematocrit 39.8 % (36-46); Hemoglobin 13.3 g/dL (12.0-16.0); Mean Corpuscular HGB Conc 33.5 % (30-36); Mean Corpuscular Hemoglobin 31.4 PG (26-34); Mean Corpuscular Volume 93.8 fL (80-100); Platelet Count 226 X10^3/uL (150-400); Red Blood Cell Count 4.24 X10^6/uL (4.0-5.2); Red Cell Distribution Width 14.2 % (11.6-14.8); White Blood Cell Count 7.2 X10^3/uL (4.5-11.0)
[2025-02-14 09:34] LABS: Hemoglobin A1C% w Est Avg Glu 5.3 % (4.0-6.0)
[2025-02-14 09:36] LABS: Alanine Aminotransferase 22 IU/L (<35); Albumin 4.3 g/dL (3.5-5.0); Albumin Globulin Ratio 1.7 (1.0-2.8); Alkaline Phosphatase 87 U/L (38-126); Aspartate Aminotransferase 25 IU/L (14-36); BUN Creatinine Ratio 23.5 (6-22); Bilirubin Total 0.5 mg/dL (0.2-1.3); Blood Urea Nitrogen 19 mg/dL (7-17); Calcium 9.4 mg/dL (8.4-10.2); Carbon Dioxide 30 mmol/L (22-32); Chloride 102 mmol/L (98-107); Cholesterol 231 mg/dL (140-199); Estimated Glomerular Filt Rate > 60 mL/min (>60); Globulin 2.6 g/dL (1.7-4.1); Glucose 115 mg/dL (70-99); HDL Cholesterol 57 mg/dL (40-60); HEMOLYSIS < 15 (0-50); LDL Cholesterol Calculated 145 mg/dL (<100); Potassium 4.6 mmol/L (3.4-5.1); Sodium 138 mmol/L (137-145); Total Protein 6.9 g/dL (6.3-8.2); Triglycerides 146 mg/dL (35-150)
== END ==
PROVIDERS: PCP Family Medicine; Referring Provider Family Medicine; Visit Provider Family Medicine
DX: Z12.31 Encounter for screening mammogram for malignant neoplasm of breast (principal); R92.333 Mammographic heterogeneous density, bilateral breasts; E66.9 Obesity, unspecified; E78.00 Pure hypercholesterolemia, unspecified
CPT/HCPCS: 36415; 77063; 77067; 80053; 80061; 83036; 85027

== ENCOUNTER → 2025-05-05 18:43 | Outpatient (CLI) | payer OTHER, SELFPAY ==
--- NOTE | 2025-05-05 18:45 | DI.MRI.S_ITS ---
PROCEDURE: MR KNEE LT WO CON INDICATIONS: Chronic pain, medial meniscus tear, ACL/MCL partial tears TECHNIQUE: Noncontrast sagittal PD fast spin echo and T2 fast spin echo with fat saturation, sagittal 3-D FLASH with fat saturation; coronal T1 spin echo and PD fast spin echo with fat saturation, and axial PD fast spin echo with fat saturation through the knee. COMPARISON: [facility], MR, MR KNEE LT WO CON, 05/18/2022, 18:55. FINDINGS: Quality: Adequate Menisci: Medial meniscus: Horizontal tear of medial meniscus, progressed from prior examination posterior root tear medial meniscus similar to prior examination. Lateral meniscus: Intact Cruciate ligaments: Anterior cruciate ligament: Intact Posterior cruciate ligament: Intact Collateral ligaments: Medial collateral ligament: Intact Lateral collateral ligament complex: Proximal scarring of the lateral collateral ligament without tear. The iliotibial band, popliteus and biceps femoris are unremarkable. Extensor mechanism: Quadriceps tendon: Intact Patellar tendon: Intact Retinaculum: Intact Fat pads: Unremarkable Cartilage: Broad areas of full-thickness cartilage loss in the medial compartment and patellofemoral compartments, worsened from prior examination with subchondral marrow edema like lesions and marginal osteophytes. Shallow cartilage fissuring in the central weight-bearing portion of the lateral femoral condyle. Bones: Unchanged eccentric enchondroma in the posterior aspect of the proximal tibial metaphysis with no cortical scalloping, periosteal reaction or breakthrough.. No fracture. Fluid spaces: Joint: Small effusion and loose bodies in the popliteus recess. Popliteal cyst: None Other: None IMPRESSION: Progressive osteoarthritis. Progressive medial meniscus tearing. Unchanged tibial enchondroma Dictated by: Nile Wood M.D. on 05/06/2025 at 8:16 Approved by: Nile Wood M.D. on 05/06/2025 at 8:40
--- NOTE | 2025-05-05 18:45 | DI.MRI.S_ITS ---
PROCEDURE: MR KNEE RT WO CON INDICATIONS: Chronic pain, medial meniscus tear, ACL/MCL partial tears TECHNIQUE: Noncontrast sagittal PD fast spin echo and T2 fast spin echo with fat saturation, sagittal 3-D FLASH with fat saturation; coronal T1 spin echo and PD fast spin echo with fat saturation, and axial PD fast spin echo with fat saturation through the knee. COMPARISON: [facility], MR, MR KNEE LT WO CON, 05/05/2025, 18:52. FINDINGS: Quality: Adequate Menisci: Medial meniscus: Complex tearing of nearly the entire meniscus. Lateral meniscus: Intact Cruciate ligaments: Anterior cruciate ligament: Intact Posterior cruciate ligament: Intact Collateral ligaments: Medial collateral ligament: Intact Lateral collateral ligament complex: Chronic appearing partial tearing of the lateral collateral ligament. Popliteus tendon is intact. Biceps femoris and iliotibial band are intact. Extensor mechanism: Quadriceps tendon: Intact Patellar tendon: Intact Retinaculum: Intact Fat pads: Unremarkable Cartilage: Broad areas of full-thickness cartilage loss and large marginal osteophytes in the medial compartment. Shallow fibrillation in the lateral and patellofemoral compartments with large marginal osteophytes. Bones: No fracture. Fluid spaces: Joint: Small effusion. Loose bodies, the largest of which is located in the weight-bearing portion of the medial femoral condyle measuring 9 millimeters. Popliteal cyst: Small multiloculated popliteal cyst. With partial rupture. Other: None IMPRESSION: Severe osteoarthritis with multiple intra-articular bodies. Complex medial meniscus tear. Chronic grade 2 lateral collateral ligament sprain. Popliteal cyst with partial rupture. Dictated by: Nile Wood M.D. on 05/06/2025 at 8:40 Approved by: Nile Wood M.D. on 05/06/2025 at 8:49
== END ==
LOC: MRI 18:43
PROVIDERS: PCP Family Medicine; Referring Provider Family Medicine; Visit Provider Family Medicine
DX: S83.231A Complex tear of medial meniscus, current injury, right knee, initial encounter (principal); S83.421A Sprain of lateral collateral ligament of right knee, initial encounter; S83.242A Other tear of medial meniscus, current injury, left knee, initial encounter; S89.92XA Unspecified injury of left lower leg, initial encounter; M17.0 Bilateral primary osteoarthritis of knee; M25.561 Pain in right knee; M25.562 Pain in left knee; D16.22 Benign neoplasm of long bones of left lower limb; M66.0 Rupture of popliteal cyst; G89.29 Other chronic pain; X58.XXXA Exposure to other specified factors, initial encounter
CPT/HCPCS: 73721

== ENCOUNTER → 2025-05-30 11:16 | Outpatient (CLI) | payer OTHER, SELFPAY ==
--- NOTE | 2025-05-30 12:01 | EKG_ITS ---
[place] [id number] [place] [address] Test Date: 2025-05-30 Pat Name: Nazia Hall Department: Room: Gender: Female [employer]: : 1975 Requested By: Order Number: [id number] Reading MD: Moustapha Hoskins MD Measurements Intervals [place] Rate: 66 P: 58 MT: 168 QRS: 25 QRSD: 88 T: 32 QT: 396 QTc: 415 Interpretive Statements Normal sinus rhythm Possible Left atrial enlargement Electronically Signed On 06-01-2025 7:47:55 PDT by Moustapha Hoskins MD
[2025-05-30 13:03] LABS: Add Manual Diff / Slide Review NO; Hematocrit 40.2 % (36-46); Hemoglobin 13.4 g/dL (12.0-16.0); Lymphocytes Absolute Auto 1900 /uL (1100-4500); Mean Corpuscular HGB Conc 33.3 % (30-36); Mean Corpuscular Hemoglobin 31.0 PG (26-34); Mean Corpuscular Volume 93.1 fL (80-100); Platelet Count 256 X10^3/uL (150-400)
[2025-05-30 13:10] LABS: Hemoglobin A1C% w Est Avg Glu 5.7 % (4.0-6.0)
[2025-05-30 13:14] LABS: Albumin 4.6 g/dL (3.5-5.0); Blood Urea Nitrogen 14 mg/dL (7-17); Calcium 9.5 mg/dL (8.4-10.2); Carbon Dioxide 27 mmol/L (22-32); Chloride 102 mmol/L (98-107); Estimated Glomerular Filt Rate > 60 mL/min (>60); Glucose 96 mg/dL (70-99); HEMOLYSIS < 15 (0-50); Potassium 4.5 mmol/L (3.4-5.1); Sodium 138 mmol/L (137-145)
[2025-05-30 13:22] LABS: Prealbumin 28.8 mg/dL (17.6-36.0)
[2025-05-30 16:24] LABS: Vitamin D 25 Hydroxy (D3) 65.6 ng/mL (30.0-100.0)
== END ==
PROVIDERS: PCP Family Medicine; Referring Provider Orthopaedic Surgery Adult Reconstructive Orthopaedic Surgery; Visit Provider Orthopaedic Surgery Adult Reconstructive Orthopaedic Surgery
DX: M17.0 Bilateral primary osteoarthritis of knee (principal)
CPT/HCPCS: 36415; 80048; 82040; 82306; 83036; 84134; 85025; 93005; 93010

== ENCOUNTER 2025-08-03 07:00 | Day surgery (SDC) | payer OTHER, SELFPAY ==
[2025-07-27 08:19] VITALS: BMI 35.9
--- NOTE | 2025-08-03 06:00 | DI.RAD.S_ITS ---
PROCEDURE: XR KNEE RT 1TO2V INDICATIONS: TKA TECHNIQUE: 2 view(s) of the knee acquired. COMPARISON: [facility] [place], XR KNEE LT 3V, 05/19/2024, 7:19. [facility], CR, XR KNEE LT 3V, 05/09/2022, 11:52. FINDINGS: Bones: Patient is status post knee joint arthroplasty. Hardware components are in expected positions. Visualized bony structures are intact. Soft tissues: Overlying postoperative changes are noted. IMPRESSION: Expected post-operative appearance of a knee arthroplasty. Dictated by: Bairon Calderon M.D. on 08/03/2025 at 13:47 Approved by: Bairon Calderon M.D. on 08/03/2025 at 13:47
--- NOTE | 2025-08-03 07:31 | PM.PREOP ---
Pre-operative Note Interval Note History & Physical reviewed/Exam performed by Physician: Yes Changes to H&P: No
[2025-08-03] MEDS: ACETAMINOPHEN 325 MG TABLET 975 MG PO (07:35)
[2025-08-03] MEDS: LACTATED RINGERS 1,000 ML 42 ML IV ×2 (07:36→10:54)
[2025-08-03] MEDS: MELOXICAM 7.5 MG TABLET 15 MG PO (07:36)
[2025-08-03 07:48] VITALS: BP 148/96; PULSE 68; RESP 16; TEMP 36.4; O2SAT 97
--- NOTE | 2025-08-03 09:49 | SUR.OPER ---
Supine on padded OR bed. Pillow under head, arms secured on padded armboards <90 degree abduction. Safety belt across torso. Non-operative leg secured with tape over blanket over lower leg. Operative leg secured in Ben positioner. Foam padded brace at thigh of operative leg.
[2025-08-03] MEDS: KETOROLAC 30 MG/ML VIAL 15 MG INJ (11:16)
--- NOTE | 2025-08-03 11:25 | P.OP_ITS ---
Operative Date/Time/Diagnoses Date of procedure: 08/03/25 Time of procedure: 10:30 Pre-op diagnosis: Right knee osteoarthritis Post-op diagnosis: same Procedure & Clinicians Procedure: Right total knee arthroplasty Same procedure(s) as scheduled: Yes Surgeon: Teodoro Pinon Assisted?: Yes Poultry Scientist: Shannan Sewell Anesthesia Type: Spinal, Sedation and Local Operative Notes Findings: Severe arthritis Closure Type: primary Applied: implant(s) Estimated Blood Loss (mL): 50 Tourniquet time (min): 46 Procedure in detail: Right Gap-Balanced Sarahi Persona Medial-Congruent Primary Total Knee Arthroplasty Implants: * Size 8 narrow Cruciate Retaining Femoral Component * Size D Tibial Component * Size 14 Medial Congruent Polyethylene Insert * Unresurfaced Patella Procedure Summary: This 50-year-old female patient had tremendous bone quality so uncemented fixation was utilized for her total knee. After initial cuts she had excess medial laxity so a valgus recut was utilized. Given the recut I ended up utilizing a larger polyethylene insert, 14 mm. This was anticipated by the tension in the extension gap as the extension gap open to 12 mm with 50 lb of force. A size 16 insert was very tight in flexion and I felt that this would have limited her terminal knee flexion if I had used at size so a 14 was utilized. Procedure in Detail: This patient was seen preoperatively and evaluated for knee pain which was refractory to numerous nonoperative treatment modalities. Their pain correlated with radiographic changes demonstrating significant degeneration in the knee joint. The risks and benefits of continued nonoperative management versus operative management were discussed at length and all of the patient?s questions were answered. Additional educational materials providing further details beyond our discussion in clinic were provided via a publicly available patient education video which included the incidence of medical complications associated with total knee arthroplasty, reasons for revision following total knee arthroplasty, and patient satisfaction rates following total knee arthroplasty. With this understanding of the risks inherent to the procedure, the patient elected to move forward with operative management. Following preoperative optimization, the patient was scheduled for surgery. The patient was met in the preoperative holding area the day of the procedure and all questions were answered. The patient?s nares were swabbed in order to decolonize them from MRSA. Informed consent was signed and the right limb was marked with indelible ink.? The patient was brought back to the operating room where anesthesia was induced. The patient was transferred to the operating table and all bony prominences were padded. The operative site was prepped and draped in the usual sterile fashion. A second prep stick was utilized following drape placement. The incision was marked corresponding to the medial aspect of the tibial tubercle and the patella. Ioban was wrapped circumferentially around the knee. Prior to incision, tranexamic acid and cefazolin were administered. Templating images were displayed. A timeout procedure was performed verifying the patient?s identity, medical comorbidities, allergies, relevant medications, anesthesia type and the surgical plan. All present were in agreement. The assistance of a physician respiratory care assistant was required for positioning, room setup, soft tissue retraction and wound closure. Without this assistance, the procedure would have been significantly more challenging and time consuming.?? The tourniquet was inflated prior to incision. I made an anterior incision over the knee, dissected through the subcutaneous tissues and identified the lateral border of the VMO. Medial and lateral soft tissue flaps were developed. A mid- vastus arthrotomy was performed ensuring that adequate capsular tissue would remain for closure at the conclusion of the procedure. The knee was brought into extension and the medial soft tissues were released off the joint line of the tibia. Tissue overlying the distal anterior femur was released to allow for later assessment for anterior notching but left in place. A portion of the retropatellar fat pad was excised while protecting the patellar tendon. The patella was everted. The patella was not resurfaced. Osteophytes were excised and a lateral facetectomy was performed. The patella was released from its everted position.?? I flexed the knee to 90 degrees and placed retractors to allow access to the notch. An opening reamer was used to gain access to the femoral canal and an intramedullary jose g was introduced into the canal. Diaphyseal fit was obtained in order to plan a distal femoral resection at 6 degrees relative to the anatomic axis. A +0 resection was planned and assessed using an galen wing. I then made the cut using a sagittal saw. This provided additional access to the femoral notch. The ACL and PCL were excised. Retractors were placed on the lateral and medial tibia. I hyperflexed the knee while externally rotating it to sublux the tibia anteriorly. I placed a Edenilson retractor posteriorly and used this to provide additional anterior subluxation. The remainder of the PCL root was released. An extramedullary guide was positioned for a resection in varus as referenced by the medial and lateral aspects of the tibial spine. A +4 resection off the medial tibia was planned and the tibial cutting jig was pinned in place. I evaluated the depth, varus-valgus alignment and slope of the planned tibial resection prior to making the cut. I cut the tibia with a sagittal saw while using retractors to protect the MCL, patellar tendon, and posterolateral structures.? The knee was repositioned in extension and the Fuzion soft tissue balancing gauge was introduced. This demonstrated that there was excess laxity medially so I used a valgus recut block to cut an additional 2? of valgus into it. Overall limb alignment remained in varus. When 50 pounds of force was applied to the Fuzion device, the extension gap opened to 12 mm. I moved the knee into 90 degrees of flexion, and the Fuzion device was recalibrated by removing a 9 mm marlene to allow assessment of the flexion gap. The Fuzion block was placed perpendicular to the resected surface of the tibia and the resected surface of the distal femur. Fifty pounds of traction was applied to match the tension of the extension gap. This externally rotated the femur to 0 degrees. Pins were placed in the 12 mm holes. Appropriate sizing was determined and a 4-in-1 block was placed. This was double checked using the Fuzion device to ensure that it would open to an equal distance as the extension gap when the same amount of force was applied. The Fuzion block was also used to assess flexion gap sym metry. An galen wing was used to ensure there would be no anterior notching. Retractors were placed to protect the soft tissues during resection. Captured cuts were performed with a sagittal saw for the anterior and posterior femur as well as the corresponding chamfers.?A laminar inside sales account executive and retractors were used to expose the posterior knee and the menisci and posterior osteophytes were removed. Trial components were placed and the construct was assessed. Range of motion was assessed by ensuring the knee could achieve full extension and assessing maximum passive knee flexion by elevating the femur and allowing the heel to passively fall towards the buttock. Gap symmetry was assessed by stressing the medial and lateral compartments in both extension and flexion. Laxity was assessed in both extension and flexion and the polyethylene trial was adjusted with shims as necessary. Patellar tracking was assessed with knee flexion. Once satisfied with the construct, I moved forward with implant insertion. Lug holes were drilled in the femur and the tibia was prepped ensuring appropriate sizing and rotation relative to the tibial tubercle.?? The bony ends were irrigated. A portion of the anterior chamfer cut was utilized as a to plug the hole from the intramedullary jose g in the femur. I impacted the tibial component into place. The tibia was reduced underneath the femur. I placed the femoral component. I brought the knee into extension and manually pressurized the construct by pushing on the heel. The knee was bathed in a dilute mixture of betadine and peroxide. A mixture of Ropivacaine, Epinephrine and Toradol was infiltrated throughout the soft tissues into structures including the VMO, patellar tendon, quadriceps tendon, MCL and femoral periosteum. The knee was copiously irrigated with pulse lavage. The knee was again trialed. Range of motion was assessed by ensuring the knee could achieve full extension and assessing maximum passive knee flexion by elevating the femur and allowing the heel to passively fall towards the buttock. Gap symmetry was assessed by stressing the medial and lateral compartments in both extension and flexion. Laxity was assessed in both extension and flexion and the polyethylene trial was adjusted with shims as necessary. Patellar tracking was assessed with knee flexion. The tourniquet was let down and the polyethylene trial was removed. I inspected the knee inspected for any residual bleeding. Once hemostasis was achieved I inserted the final polyethylene and ensured appropriate engagement of the dovetail locking mechanism.?? The arthrotomy was closed with non-absorbable interrupted suture ensuring that this extended to the top of the arthrotomy. This was backed up with running barbed suture throughout the arthrotomy. The skin was closed with 2-0 and 3-0 sutures. Surgical glue was applied and a soft dressing was placed.?The sponge, instrument and needle counts were reported as being correct at the end of the case. The patient was transferred from the operating table back to a stretcher. The patient emerged from anesthesia without difficulty and was taken to the PACU in a stable condition.? Plan for aftercare: * Weightbearing as tolerated * Aspirin 81 twice per day for DVT prophylaxis * Multimodal pain regimen with no IV opioids ordered * Anticipate discharge home later today * Follow up at [facility] in 2 weeks for wound check Complications: none Post-operative Condition: stable Disposition: same day surgery
[2025-08-03 12:05] VITALS: BP 111/56; PULSE 71; RESP 22; TEMP 36.1; O2SAT 97
[2025-08-03 12:10] VITALS: BP 110/65; PULSE 68; RESP 22; TEMP 36.1; O2SAT 96
[2025-08-03 12:15] VITALS: BP 117/73; PULSE 67; RESP 22; O2SAT 96
[2025-08-03 12:19] VITALS: BP 117/73; PULSE 66; RESP 20; TEMP 36.1; O2SAT 95
--- NOTE | 2025-08-03 13:37 | PT.IIE ---
Current Diagnoses Unilateral primary osteoarthritis, right knee (08/03/25) Surgery Performed Operation Date: 08/03/25 09:30 Actual Procedures p Total Knee Arthroplasty(Right) - Teodoro Pinon MD Surgical History (Last Updated 06/17/24 @ 18:35 by Corin Chung) Anesthesia History of colonoscopy (~2022) Medical History (Last Updated 11/27/24 @ 09:15 by Andrew Mishra MD) Anxiety Depression (08/20/07) Menopause Shoulder pain Physical Therapy Inpatient Evaluation/Re-Eval M1 PT IP Prior Functional Status Start: 08/03/25 17:40 Freq: Status: Active Protocol: Document 08/03/25 17:40 NW (Rec: 08/03/25 17:48 NW [id number]) Medical Review Prior Functional Status Mobility and Gait Independent without an AD. Social History Household Members significant other Living Arrangements House Number of Floors ( Two Floors Floors) Number of Stairs To 5 steps to enter, 13 steps in home Enter/Railing? Home Environment Standard Height Toilet,Tub/Shower Home Equipment Front Wheel Walker,Bedside Commode Additional Social Pt has supportive spouse present to assist as needed. History Comment M2 PT-IP Current Condition Start: 08/03/25 17:40 Freq: Status: Active Protocol: Document 08/03/25 17:40 NW (Rec: 08/03/25 17:48 NW [id number]) Physical Therapy Current Condition Current Condition Evaluation Date 08/03/25 Treatment Diagnosis R TKA Onset Date 08/03/25 M3 PT-IP Subjective Start: 08/03/25 17:40 Freq: Status: Active Protocol: Document 08/03/25 17:40 NW (Rec: 08/03/25 17:48 NW [id number]) Subjective Physical Therapy Visit Type Type Initial Evaluation Visit Start Time 13:05 Visit Stop Time 13:37 Number of FIELD INSTALLATION TECHNICIAN Visits 0 Physical Therapy Visit Comments Patient Comments Pt is received sitting edge of bed in PACU with spouse. Patient Goals Go home. M4 PT-IP Mobility and Gait Start: 08/03/25 17:40 Freq: Status: Active Protocol: Document 08/03/25 17:40 NW (Rec: 08/03/25 17:48 NW [id number]) PT-Bed Mobility Assessment Supine to Sit Supine to Sit Independent Sit to Supine Sit to Supine Independent PT-Transfer Assessment Sit to and From Stand Sit to and from Contact Guard Assistance Stand Equipment Transfer Assistive Gait Belt,Front Wheeled Walker Device Transfers Transfer Destination Bed,Chair Transfer Technique Stand Step Pivot Transfer Ability Level of Assist Standby Assistance Comments Mobility Comments Adequate power production and fair Wbing on RLE. Good use of UE. Gait Assessment Gait Gait Assistance Standby Assistance Required: Distance (Feet) 80 Able to Maintain Yes Weight Bearing Status During Gait Assistive Devices Assistive Device Gait Belt,Front Wheeled Walker Gait Deviations General Gait Pattern Antalgic,Step-to Gait Factors Limiting Gait Function Factors Limiting Pain Gait Function Comments Gait Comments Good safety awareness and AD usage. No cues necessary for AD management. Stair Climbing Assessment Evaluation Level of Assist On Contact Guard Assistance Stairs Devices Stair Climbing Right Railing Assistive Devices Technique/Endurance Stair Climbing Ascend and Descend Direction Stair Climbing Step to Step Technique Number of Steps 3 Climbed Query Text: Stair Climbing Set # 2 Repetitions (reps) Comments Stair Climbing cues for UE use with railing and up with the good and Comments down with the bad. Fair eccentric control with UE on unilateral railing. PT-Balance Assessment Sitting Balance and Reactions Static Sitting Normal Balance Ability Dynamic Sitting Normal Balance Ability Standing Balance and Reactions Static Standing Fair Balance Ability Dynamic Standing Poor Balance Ability Device Used FWW M5 PT-IP Objective Assessments Start: 08/03/25 17:40 Freq: Status: Active Protocol: Document 08/03/25 17:40 NW (Rec: 08/03/25 17:48 NW [id number]) Orientation Orientation/Cognition Level of Alertness Alert Orientation Name,Age,Birthday,Month,Date,Year,Day of Week,Place, Situation Language Function No Deficits Noted Ability Safety Awareness Understands Safety Issues Memory Description No Deficits Noted Gross Range of Motion Upper Extremity ROM Assessment Within Functional Limits Lower Extremity ROM Assessment Within Functional Limits Strength Upper Extremity Strength Assessment Within Functional Limits Lower Extremity Strength Assessment Right Impaired Hip WFL Knee 3/5 knee extension, DNT further Ankle WFL M6 PT-IP Treatment Start: 08/03/25 17:40 Freq: Status: Active Protocol: Document 08/03/25 17:40 NW (Rec: 08/03/25 17:48 NW [id number]) Physical Therapy Treatment Education Education Provided Weight Bearing Status,Post-Op Packet,Safety Equipment Issued Equipment Type and Education on obtaining shower bench to assist with Company shower/tub combo and importance of heel slides and post op packet/instructions. Education on car transfer techniques to assist. M7 PT-IP Assessment and Plan Start: 08/03/25 17:40 Freq: Status: Active Protocol: Document 08/03/25 17:40 NW (Rec: 08/03/25 17:48 NW [id number]) PT Summary Assessment and Plan Potential Rehabilitation Excellent Potential Status of Condition Stable at Evaluation Summary Assessment Summary Nazia is a 50 yr old female s/p R TKA on 08/03/25. Pt is able to perform all functional mobility with CGA/SBA from transfers, gait with FWW, and stair navigation with unilateral hand railing. Spouse is present upon session for education on assistance and HEP in post op packet. Pt has OP PT set up and does not need anything further at this time. Frequency of Treatment Frequency Of Discharge Treatment Weight Bearing Status Weight Bearing Weight Bear as Tolerated Status Recommendations To Nursing Amount of Assist Standby Assistance Needed Discharge Recommendations PT Discharge Home with Assistance,Outpatient PT Recommendations Other Discharge shower bench Recommendations Transportation Needs Private Vehicle at Discharge - PT assist 1
== END 2025-08-03 14:29 | disposition home or self-care (01) ==
PROVIDERS: PCP Family Medicine; Referring Provider Family Medicine; Visit Provider Orthopaedic Surgery Adult Reconstructive Orthopaedic Surgery
PROC: 0SRC0JZ Replacement of Right Knee Joint with Synthetic Substitute, Open Approach (ICD-10-PCS; CPT 27447; principal; 2025-08-03 09:30)
DX: M17.11 Unilateral primary osteoarthritis, right knee (principal); M25.761 Osteophyte, right knee; Z87.891 Personal history of nicotine dependence
CPT/HCPCS: 27447; 73560; 82962; 97161; 97530; C1776; C1713; J0689; J1100; J1885; J2250; J2405; J2704; J3010; J7120